=== PATIENT | male | born 1970 | race Two or more races ===

== ENCOUNTER 2020-07-20 08:45 | Emergency (ER) | payer OTHER ==
[~2020-07-20] VITALS: Ht 162.6 cm; Wt 72.7 kg
[~2020-07-20 08:45] MED LIST: IBUP-1986 PO; ONDA4TAB12 PO
[2020-07-20 08:47] VITALS: BP 118/70
[2020-07-20] MEDS ORDERED: AMOX500C2 PO (08:56)
[2020-07-20] MEDS ORDERED: IBUP-1984 PO (08:56)
== END 2020-07-20 09:13 | disposition home or self-care (01) ==
LOC: ER 08:45
DX: K08.89 Other specified disorders of teeth and supporting structures (principal); K00.7 Teething syndrome; Z72.89 Other problems related to lifestyle; Z79.2 Long term (current) use of antibiotics; Z79.899 Other long term (current) drug therapy
CPT/HCPCS: 99283